=== PATIENT | female | born 1995 | race African-American/Black ===

== ENCOUNTER 2020-08-19 20:18 | Emergency (ER) | payer OTHER ==
[~2020-08-19] VITALS: Ht 160 cm; Wt 93.0 kg
[2020-08-19] MEDS ORDERED: MORPHINE SULFATE 4 MG/ML CPJ (NOT FOR IM USE) IV STA (21:21)
[2020-08-19] MEDS ORDERED: ONDANSETRON HCL 4MG/2ML INJ IV STA (21:21)
[2020-08-19] MEDS ORDERED: SODIUM CHLORIDE 0.9% 1,000 ML IV ONE (21:30)
[2020-08-19] MEDS ORDERED: MORPHINE SULFATE 4 MG/ML CPJ (NOT FOR IM USE) IV ONE (22:45)
[2020-08-19 23:21] LABS: BASOPHILS % 0.3 % (0.0-2.0); EOSINOPHILS % 0.9 % (0.0-5.0); HEMATOCRIT. 37.3 % (36.0-48.0); HEMOGLOBIN. 12.2 g/dL (12.0-16.0); LYMPHOCYTES % 22.8 % (20.0-50.0); MEAN CORPUSCULAR VOLUME 82.3 fL (81.0-99.0); MEAN PLATELET VOLUME 8.5 fl (7.4-10.4); MONOCYTES % 7.2 % (2.0-8.0); NEUTROPHILS % 68.8 % (40.0-76.0); PLATELET 226 x1000/uL (130-400); RED BLOOD CELL COUNT 4.53 mill/uL (4.2-5.4); RED CELL DISTRIBUTION WIDTH 13.9 % (11.6-14.6)
[2020-08-19 23:22] LABS: CHLORIDE 106 mEq/L (98-107)
[2020-08-19 23:23] LABS: CLARITY URINE CLEAR (CLEAR); COLOR URINE YELLOW (YELLOW); KETONES URINE NEGATIVE (NEGATIVE); LEUKOCYTE ESTERASE URINE NEGATIVE (NEGATIVE); NITRITE URINE NEGATIVE (NEGATIVE); OCCULT BLOOD URINE NEGATIVE (NEGATIVE); PROTEIN URINE NEGATIVE (NEGATIVE); PROTHROMBIN TIME 10.9 sec (9.6-11.0); SPECIFIC GRAVITY URINE 1.008 (1.005-1.030); UROBILINOGEN URINE 0.2 E.U./dL (0.2-1.0)
[2020-08-19 23:28] LABS: ETHANOL BLOOD < 10 mg/dL
[2020-08-19 23:34] LABS: HCG SCREEN NEGATIVE
[2020-08-19 23:38] LABS: *AMPHETAMINES SCREEN URINE NEGATIVE (NEGATIVE); *BARBITURATES SCREEN URINE NEGATIVE (NEGATIVE); *BENZODIAZEPINES SCREEN URINE NEGATIVE (NEGATIVE); *COCAINE SCREEN URINE NEGATIVE (NEGATIVE); CANNABINOID URINE SCREEN NEGATIVE (NEGATIVE); METHADONE URINE SCREEN NEGATIVE (NEGATIVE); OPIATES URINE SCREEN NEGATIVE (NEGATIVE); PHENCYCLIDINE URINE SCREEN NEGATIVE (NEGATIVE)
[2020-08-20] MEDS ORDERED: IOHEXOL-300 100 ML BOTTLE ONE (00:16)
[2020-08-20 02:11] VITALS: BP 114/73
== END 2020-08-20 02:16 | disposition home or self-care (01) ==
LOC: ER 20:18
DX: R10.31 Right lower quadrant pain (principal); R11.0 Nausea
CPT/HCPCS: 36415; 74177; 80053; 80305; 80320; 81003; 83605; 83690; 84703; 85025; 85610; 93005; 96361; 96374; 96375; 99285; J2270; J2405; J7030; Q9967; G0480

== ENCOUNTER 2022-03-27 18:51 | Emergency (ER) | payer OTHER ==
[~2022-03-27] VITALS: Ht 160 cm; Wt 96.0 kg
[2022-03-27] MEDS ORDERED: EPIN0.3P3 IM (19:23)
[2022-03-27] MEDS ORDERED: EPINEPHRINE 1:1000 1 MG/ML AMP IM ONE (19:30)
[2022-03-27] MEDS ORDERED: DIPHENHYDRAMINE 50MG CAPSULE PO ONE (19:30)
[2022-03-27] MEDS ORDERED: DEXAMETHASONE 10 MG/ML VIAL IM ONE (19:30)
[2022-03-27] MEDS ORDERED: FAMOTIDINE 20MG TABLET PO ONE (19:30)
[2022-03-28 01:02] VITALS: BP 133/78
== END 2022-03-28 01:07 | disposition home or self-care (01) ==
LOC: ER 18:51
DX: T78.40XA Allergy, unspecified, initial encounter (principal); X58.XXXA Exposure to other specified factors, initial encounter
CPT/HCPCS: 96372; 99291; J1100; J3490; Q0163